=== PATIENT | male | born 1945 | race Caucasian/White ===

== ENCOUNTER 2024-05-31 11:07 | Emergency (ER) | payer BC, MEDICARE, OTHER ==
[~2024-05-31] VITALS: Ht 180.3 cm; Wt 88.5 kg
[2024-05-31 11:26] VITALS: TEMP 97.8
[2024-05-31 14:08] VITALS: BP 145/85; O2SAT 99
== END 2024-05-31 14:00 | disposition home or self-care (01) ==
LOC: ER 11:28
DX: M54.31 Sciatica, right side (principal)

== ENCOUNTER 2025-10-17 23:42 | Emergency (ER) | payer MEDICARE ==
[~2025-10-17] VITALS: Ht 177.8 cm; Wt 2.6 kg
[2025-10-18 00:17] VITALS: BP 155/70; TEMP 98.4; O2SAT 98
[2025-10-18] MEDS ORDERED: TDAP [DIPH/PERTUSSIS/TET] 0.5 ML VIAL IM ONE (00:55)
[2025-10-18] MEDS: TDAP [DIPH/PERTUSSIS/TET] 0.5 ML VIAL IM ONE (00:58)
== END 2025-10-18 01:18 | disposition home or self-care (01) ==
LOC: ER 23:47
DX: S61.412A Laceration without foreign body of left hand, initial encounter (principal); W26.0XXA Contact with knife, initial encounter; Y93.89 Activity, other specified; Y92.89 Other specified places as the place of occurrence of the external cause; Y99.8 Other external cause status
CPT/HCPCS: 90715